=== PATIENT | female | born 1975 | race Caucasian/White ===

== ENCOUNTER 2018-06-25 10:40 | Inpatient (IN) | payer MEDICAID ==
[2018-06-25] MEDS: ONDANSETRON 4 MG INJ IV (12:48)
[2018-06-25] MEDS: KETOROLAC 30 MG INJ IV (12:48)
[2018-06-25 12:53] LABS: ADD MAN DIFF? NO
[2018-06-25 12:54] LABS: BASOPHILS % 0.5 % (0.0-2.0); EOSINOPHILS # 0.1 10^3/ul (0.0-0.5); EOSINOPHILS % 1.1 % (0.0-7.0); HEMATOCRIT 40.6 % (37.0-47.0); HEMOGLOBIN 13.2 g/dl (12.0-16.0); LYMPHOCYTES # 1.5 10^3/ul (0.8-2.9); LYMPHOCYTES % 23.2 % (15.0-51.0); MEAN CORPUSCULAR HEMOGLOBIN 27.6 pg (29.0-33.0); MEAN CORPUSCULAR HGB CONC 32.5 g/dl (32.0-37.0); MEAN CORPUSCULAR VOLUME 84.9 fl (82.0-101.0); MEAN PLATELET VOLUME 10.3 fl (7.4-10.4); MONOCYTE # 0.4 10^3/ul (0.3-0.9); MONOCYTES % 6.1 % (0.0-11.0); NEUTROPHIL # 4.5 10^3/ul (1.6-7.5); NEUTROPHILS % 68.6 % (39.0-77.0); PLATELET COUNT 332 10^3/UL (140-415); RED BLOOD COUNT 4.78 10^6/ul (4.20-5.40); RED CELL DISTRIBUTION WIDTH 13.5 % (11.5-14.5)
[2018-06-25 12:54] LABS: WHITE BLOOD COUNT 6.6 10^3/ul (4.8-10.8)
[2018-06-25 13:02] LABS: ADD UMIC YES; UR ASCORBIC ACID NEGATIVE (NEGATIVE); UR BACTERIA FEW /HPF (NONE SEEN); UR BILIRUBIN (Dip) 1+ mg/dL (NEGATIVE); UR BLOOD (Dip) NEGATIVE (NEGATIVE); UR CLARITY CLOUDY (CLEAR); UR COLOR AMBER (YELLOW); UR GLUCOSE (Dip) NEGATIVE (NEGATIVE); UR KETONES (Dip) NEGATIVE (NEGATIVE); UR LEUKOCYTE ESTERASE (Dip) NEGATIVE Leu/ul (NEGATIVE); UR MUCUS FEW /HPF (NONE SEEN); UR NITRITE (Dip) NEGATIVE (NEGATIVE); UR RBC 0 /HPF (0-5); UR SQUAMOUS EPITHELIAL CELL MODERATE /HPF (FEW); UR TOTAL PROTEIN (Dip) NEGATIVE (NEGATIVE); UR UROBILINOGEN (Dip) 2+ mg/dL (NEGATIVE); UR WBC 2 /HPF (0-5)
[2018-06-25 13:28] LABS: ALBUMIN 4.3 g/dl (3.3-4.9); ALBUMIN/GLOBULIN RATIO 1.43; ALKALINE PHOSPHATASE 157 IU/L (42-121); ANION GAP 7 (5-13); BILIRUBIN,INDIRECT 0.7 mg/dl (0-1.1); BILIRUBIN,TOTAL 0.8 mg/dl (0.2-1.3); BLOOD UREA NITROGEN 7 mg/dl (7-20); CALCIUM 9.8 mg/dl (8.4-10.2); CARBON DIOXIDE 29 mmol/L (21-31); CHLORIDE 105 mmol/L (97-110); CREATININE 0.68 mg/dl (0.44-1.00); Estimated GFR > 60 mL/min (>60); GLUCOSE 110 mg/dl (70-220); LIPASE 232 U/L (23-300); POTASSIUM 4.5 mmol/L (3.5-5.1); SODIUM 141 mmol/L (135-144); TOTAL PROTEIN 7.3 g/dl (6.1-8.1)
[2018-06-25 13:36] LABS: ALANINE AMINOTRANSFERASE 1035 IU/L (13-69); ASPARTATE AMINO TRANSFERASE 1334 IU/L (15-46)
[2018-06-25] MEDS ORDERED: ACETAMINOPHEN 325 MG TAB PO (15:30)
[2018-06-25] MEDS ORDERED: ONDANSETRON 4 MG INJ IV (15:30)
[2018-06-25] MEDS ORDERED: NACL 0.9% 3 ML SYG IV (16:00)
[2018-06-25] MEDS ORDERED: morphine 2 MG INJ IV (16:00)
[2018-06-25 16:11] LABS: INR 0.89; PROTIME 12.2 Sec (11.9-14.9)
[2018-06-25 16:12] LABS: PARTIAL THROMBOPLASTIN TIME 24.9 Sec (23.0-35.0)
[2018-06-25] MEDS: SOD CHLORIDE 0.9% 100 ML (16:55)
[2018-06-25] MEDS: IOHEXOL 300MG/ML 150 ML BTL (16:55)
[2018-06-25 18:54] LABS: HAAIG REFLEX REFLEX FILED
[2018-06-25 19:18] LABS: INR 0.88; PT RATIO 0.9
[2018-06-25 19:45] LABS: HEPATITIS B SURFACE ANTIGEN NEGATIVE (NEGATIVE)
[2018-06-25 20:01] LABS: HEPATITIS B CORE ANTIBODY NEGATIVE (NEGATIVE); HEPATITIS C VIRAL ANTIBODY NEGATIVE (NEGATIVE)
[2018-06-25 20:02] LABS: ALPHA FETOPROTEIN 4.34 IU/L (0.00-7.21)
[2018-06-25] MEDS: FAMOTIDINE 20 MG INJ IV (21:13)
[2018-06-25] MEDS: HYDROmorphONE 0.5 MG/0.5 ML SYG IV (21:13)
[2018-06-25] MEDS: DEXTROSE 5%-0.45% NACL 1,000 ML IV (21:15)
[2018-06-26 07:22] LABS: ADD MAN DIFF? NO
[2018-06-26 07:24] LABS: WHITE BLOOD COUNT 7.2 10^3/ul (4.8-10.8)
[2018-06-26 07:24] LABS: BASOPHIL # 0.1 10^3/ul (0.0-0.1); EOSINOPHILS # 0.2 10^3/ul (0.0-0.5); EOSINOPHILS % 2.4 % (0.0-7.0); HEMATOCRIT 37.9 % (37.0-47.0); HEMOGLOBIN 12.4 g/dl (12.0-16.0); LYMPHOCYTES # 1.6 10^3/ul (0.8-2.9); LYMPHOCYTES % 21.6 % (15.0-51.0); MEAN CORPUSCULAR HEMOGLOBIN 27.9 pg (29.0-33.0); MEAN CORPUSCULAR HGB CONC 32.7 g/dl (32.0-37.0); MEAN CORPUSCULAR VOLUME 85.4 fl (82.0-101.0); MEAN PLATELET VOLUME 10.4 fl (7.4-10.4); MONOCYTE # 0.4 10^3/ul (0.3-0.9); MONOCYTES % 5.6 % (0.0-11.0); PLATELET COUNT 295 10^3/UL (140-415); RED BLOOD COUNT 4.44 10^6/ul (4.20-5.40); RED CELL DISTRIBUTION WIDTH 13.7 % (11.5-14.5)
[2018-06-26 07:52] LABS: ALANINE AMINOTRANSFERASE 871 IU/L (13-69); ALBUMIN 3.9 g/dl (3.3-4.9); ALBUMIN/GLOBULIN RATIO 1.34; ALKALINE PHOSPHATASE 160 IU/L (42-121); ANION GAP 6 (5-13); BILIRUBIN,INDIRECT 1.1 mg/dl (0-1.1); BILIRUBIN,TOTAL 1.5 mg/dl (0.2-1.3); BLOOD UREA NITROGEN 6 mg/dl (7-20); CALCIUM 9.3 mg/dl (8.4-10.2); CARBON DIOXIDE 28 mmol/L (21-31); CHLORIDE 107 mmol/L (97-110); CHOL/HDL RATIO 2.3 RATIO; CHOLESTEROL 146 mg/dl (100-200); Estimated GFR > 60 mL/min (>60); GLUCOSE 119 mg/dl (70-220); HDL CHOLESTEROL 62 mg/dl (34-88); LDL CHOLESTEROL,CALCULATED 58 mg/dl; MAGNESIUM 2.3 mg/dl (1.7-2.5); POTASSIUM 3.9 mmol/L (3.5-5.1); SODIUM 141 mmol/L (135-144); TOTAL PROTEIN 6.8 g/dl (6.1-8.1); TRIGLYCERIDES 130 mg/dl (0-149)
[2018-06-26 08:00] LABS: ASPARTATE AMINO TRANSFERASE 840 IU/L (15-46)
[2018-06-26] MEDS: FAMOTIDINE 20 MG INJ IV ×2 (08:12→20:13)
[2018-06-26] MEDS: HYDROmorphONE 0.5 MG/0.5 ML SYG IV (08:12)
[2018-06-26] MEDS: DEXTROSE 5%-0.45% NACL 1,000 ML IV ×2 (09:49→22:52)
[2018-06-26] MEDS: KETOROLAC 15 MG INJ IV (20:22)
[2018-06-27 04:54] LABS: ADD MAN DIFF? NO
[2018-06-27 05:01] LABS: BASOPHIL # 0.1 10^3/ul (0.0-0.1); BASOPHILS % 0.8 % (0.0-2.0); EOSINOPHILS # 0.2 10^3/ul (0.0-0.5); EOSINOPHILS % 2.4 % (0.0-7.0); HEMATOCRIT 38.2 % (37.0-47.0); HEMOGLOBIN 12.3 g/dl (12.0-16.0); LYMPHOCYTES # 1.7 10^3/ul (0.8-2.9); LYMPHOCYTES % 23.7 % (15.0-51.0); MEAN CORPUSCULAR HEMOGLOBIN 27.9 pg (29.0-33.0); MEAN CORPUSCULAR HGB CONC 32.2 g/dl (32.0-37.0); MEAN CORPUSCULAR VOLUME 86.6 fl (82.0-101.0); MEAN PLATELET VOLUME 10.7 fl (7.4-10.4); MONOCYTE # 0.5 10^3/ul (0.3-0.9); MONOCYTES % 7.2 % (0.0-11.0); NEUTROPHIL # 4.7 10^3/ul (1.6-7.5); NEUTROPHILS % 65.5 % (39.0-77.0); PLATELET COUNT 307 10^3/UL (140-415); RED BLOOD COUNT 4.41 10^6/ul (4.20-5.40); RED CELL DISTRIBUTION WIDTH 13.4 % (11.5-14.5)
[2018-06-27 05:01] LABS: WHITE BLOOD COUNT 7.1 10^3/ul (4.8-10.8)
[2018-06-27 05:27] LABS: ALANINE AMINOTRANSFERASE 741 IU/L (13-69); ALBUMIN 3.7 g/dl (3.3-4.9); ALBUMIN/GLOBULIN RATIO 1.08; ALKALINE PHOSPHATASE 185 IU/L (42-121); ANION GAP 6 (5-13); ASPARTATE AMINO TRANSFERASE 599 IU/L (15-46); BILIRUBIN,TOTAL 1.7 mg/dl (0.2-1.3); BLOOD UREA NITROGEN 3 mg/dl (7-20); CALCIUM 9.1 mg/dl (8.4-10.2); CARBON DIOXIDE 27 mmol/L (21-31); CHLORIDE 108 mmol/L (97-110); CREATININE 0.71 mg/dl (0.44-1.00); Estimated GFR > 60 mL/min (>60); GLUCOSE 121 mg/dl (70-220); MAGNESIUM 2.1 mg/dl (1.7-2.5); POTASSIUM 4.5 mmol/L (3.5-5.1); SODIUM 141 mmol/L (135-144); TOTAL PROTEIN 7.1 g/dl (6.1-8.1)
[2018-06-27] MEDS: KETOROLAC 15 MG INJ IV ×2 (06:02→12:15)
[2018-06-27] MEDS: DEXTROSE 5%-0.45% NACL 1,000 ML IV ×2 (07:48→12:15)
[2018-06-27] MEDS: FAMOTIDINE 20 MG INJ IV ×2 (08:46→20:12)
[2018-06-27 12:57] LABS: MITOCHONDRIAL TB NEGATIVE (NEGATIVE); SMOOTH MUSCLE AB SCREEN NEGATIVE (NEGATIVE)
[2018-06-27 14:26] LABS: ANA SCREEN NEGATIVE (NEGATIVE)
[2018-06-28] MEDS: DEXTROSE 5%-0.45% NACL 1,000 ML IV ×2 (03:53→16:20)
[2018-06-28 06:01] LABS: ADD MAN DIFF? NO
[2018-06-28 06:07] LABS: BASOPHIL # 0.1 10^3/ul (0.0-0.1); EOSINOPHILS # 0.1 10^3/ul (0.0-0.5); EOSINOPHILS % 1.6 % (0.0-7.0); HEMATOCRIT 39.2 % (37.0-47.0); HEMOGLOBIN 12.7 g/dl (12.0-16.0); LYMPHOCYTES # 1.8 10^3/ul (0.8-2.9); LYMPHOCYTES % 22.3 % (15.0-51.0); MEAN CORPUSCULAR HEMOGLOBIN 27.9 pg (29.0-33.0); MEAN CORPUSCULAR HGB CONC 32.4 g/dl (32.0-37.0); MEAN PLATELET VOLUME 10.5 fl (7.4-10.4); MONOCYTE # 0.6 10^3/ul (0.3-0.9); MONOCYTES % 7.8 % (0.0-11.0); NEUTROPHIL # 5.3 10^3/ul (1.6-7.5); PLATELET COUNT 311 10^3/UL (140-415); RED BLOOD COUNT 4.56 10^6/ul (4.20-5.40); RED CELL DISTRIBUTION WIDTH 13.7 % (11.5-14.5)
[2018-06-28 06:07] LABS: WHITE BLOOD COUNT 7.9 10^3/ul (4.8-10.8)
[2018-06-28 06:35] LABS: ALANINE AMINOTRANSFERASE 553 IU/L (13-69); ALBUMIN 3.7 g/dl (3.3-4.9); ALBUMIN/GLOBULIN RATIO 1.15; ALKALINE PHOSPHATASE 171 IU/L (42-121); ANION GAP 7 (5-13); ASPARTATE AMINO TRANSFERASE 320 IU/L (15-46); BILIRUBIN,INDIRECT 0.9 mg/dl (0-1.1); BILIRUBIN,TOTAL 1.8 mg/dl (0.2-1.3); BLOOD UREA NITROGEN 2 mg/dl (7-20); CARBON DIOXIDE 27 mmol/L (21-31); CHLORIDE 108 mmol/L (97-110); CREATININE 0.69 mg/dl (0.44-1.00); Estimated GFR > 60 mL/min (>60); GLUCOSE 121 mg/dl (70-220); POTASSIUM 4.5 mmol/L (3.5-5.1); SODIUM 142 mmol/L (135-144); TOTAL PROTEIN 6.9 g/dl (6.1-8.1)
[2018-06-28] MEDS: KETOROLAC 15 MG INJ IV ×2 (07:44→14:08)
[2018-06-28] MEDS: ONDANSETRON 4 MG INJ IV ×3 (07:49→20:45)
[2018-06-28] MEDS: FAMOTIDINE 20 MG INJ IV ×2 (07:49→20:45)
[2018-06-28] MEDS: HYDROmorphONE 0.5 MG/0.5 ML SYG IV ×2 (16:26→20:45)
[2018-06-29] MEDS: HYDROmorphONE 0.5 MG/0.5 ML SYG IV ×2 (01:32→02:35)
[2018-06-29] MEDS: ONDANSETRON 4 MG INJ IV ×4 (02:34→20:13)
[2018-06-29] MEDS: DEXTROSE 5%-0.45% NACL 1,000 ML IV ×2 (04:21→18:07)
[2018-06-29 06:11] LABS: ADD MAN DIFF? NO
[2018-06-29 06:12] LABS: BASOPHILS % 0.2 % (0.0-2.0); EOSINOPHILS % 0.1 % (0.0-7.0); HEMATOCRIT 39.6 % (37.0-47.0); HEMOGLOBIN 12.9 g/dl (12.0-16.0); LYMPHOCYTES # 1.1 10^3/ul (0.8-2.9); LYMPHOCYTES % 7.9 % (15.0-51.0); MEAN CORPUSCULAR HGB CONC 32.6 g/dl (32.0-37.0); MEAN CORPUSCULAR VOLUME 85.9 fl (82.0-101.0); MONOCYTE # 0.6 10^3/ul (0.3-0.9); MONOCYTES % 4.1 % (0.0-11.0); NEUTROPHIL # 12.4 10^3/ul (1.6-7.5); NEUTROPHILS % 87.3 % (39.0-77.0); PLATELET COUNT 300 10^3/UL (140-415); RED BLOOD COUNT 4.61 10^6/ul (4.20-5.40); RED CELL DISTRIBUTION WIDTH 13.9 % (11.5-14.5)
[2018-06-29 06:12] LABS: WHITE BLOOD COUNT 14.2 10^3/ul (4.8-10.8)
[2018-06-29 06:46] LABS: ALANINE AMINOTRANSFERASE 462 IU/L (13-69); ALBUMIN 3.9 g/dl (3.3-4.9); ALKALINE PHOSPHATASE 178 IU/L (42-121); ANION GAP 7 (5-13); ASPARTATE AMINO TRANSFERASE 258 IU/L (15-46); BILIRUBIN,INDIRECT 0.9 mg/dl (0-1.1); BILIRUBIN,TOTAL 2.2 mg/dl (0.2-1.3); BLOOD UREA NITROGEN 5 mg/dl (7-20); CALCIUM 9.1 mg/dl (8.4-10.2); CARBON DIOXIDE 26 mmol/L (21-31); CHLORIDE 104 mmol/L (97-110); CREATININE 0.67 mg/dl (0.44-1.00); Estimated GFR > 60 mL/min (>60); GLUCOSE 154 mg/dl (70-220); MAGNESIUM 1.9 mg/dl (1.7-2.5); POTASSIUM 3.4 mmol/L (3.5-5.1); SODIUM 137 mmol/L (135-144); TOTAL PROTEIN 6.9 g/dl (6.1-8.1)
[2018-06-29] MEDS: FAMOTIDINE 20 MG INJ IV ×2 (08:31→20:12)
[2018-06-29] MEDS: HYDROmorphONE 1 MG/ML SYG IV ×3 (08:31→20:13)
[2018-06-29] MEDS: POTASSIUM CHLORIDE 100 ML IVPB ×2 (10:26→14:24)
[2018-06-29] MEDS: KETOROLAC 15 MG INJ IV (10:32)
[2018-06-29] MEDS ORDERED: DOCUSATE SODIUM 100 MG CAP PO (11:00)
[2018-06-30] MEDS: HYDROmorphONE 1 MG/ML SYG IV ×4 (02:16→21:26)
[2018-06-30] MEDS: ONDANSETRON 4 MG INJ IV ×2 (02:16→06:59)
[2018-06-30 05:36] LABS: ADD MAN DIFF? NO
[2018-06-30 05:48] LABS: WHITE BLOOD COUNT 15.9 10^3/ul (4.8-10.8)
[2018-06-30 05:48] LABS: BASOPHILS % 0.2 % (0.0-2.0); EOSINOPHILS # 0.1 10^3/ul (0.0-0.5); EOSINOPHILS % 0.3 % (0.0-7.0); HEMATOCRIT 37.7 % (37.0-47.0); HEMOGLOBIN 12.2 g/dl (12.0-16.0); LYMPHOCYTES # 1.5 10^3/ul (0.8-2.9); LYMPHOCYTES % 9.6 % (15.0-51.0); MEAN CORPUSCULAR HEMOGLOBIN 27.9 pg (29.0-33.0); MEAN CORPUSCULAR HGB CONC 32.4 g/dl (32.0-37.0); MEAN CORPUSCULAR VOLUME 86.3 fl (82.0-101.0); MEAN PLATELET VOLUME 11.3 fl (7.4-10.4); MONOCYTE # 0.9 10^3/ul (0.3-0.9); MONOCYTES % 5.6 % (0.0-11.0); NEUTROPHIL # 13.3 10^3/ul (1.6-7.5); NEUTROPHILS % 83.9 % (39.0-77.0); PLATELET COUNT 265 10^3/UL (140-415); RED BLOOD COUNT 4.37 10^6/ul (4.20-5.40); RED CELL DISTRIBUTION WIDTH 14.2 % (11.5-14.5)
[2018-06-30 06:03] LABS: ALANINE AMINOTRANSFERASE 339 IU/L (13-69); ALBUMIN 3.7 g/dl (3.3-4.9); ALBUMIN/GLOBULIN RATIO 1.15; ALKALINE PHOSPHATASE 181 IU/L (42-121); ANION GAP 8 (5-13); ASPARTATE AMINO TRANSFERASE 146 IU/L (15-46); BLOOD UREA NITROGEN 5 mg/dl (7-20); CALCIUM 8.9 mg/dl (8.4-10.2); CARBON DIOXIDE 27 mmol/L (21-31); CHLORIDE 103 mmol/L (97-110); Estimated GFR > 60 mL/min (>60); GLUCOSE 111 mg/dl (70-220); MAGNESIUM 1.9 mg/dl (1.7-2.5); POTASSIUM 3.7 mmol/L (3.5-5.1); SODIUM 138 mmol/L (135-144); TOTAL PROTEIN 6.9 g/dl (6.1-8.1)
[2018-06-30] MEDS: POLYETHYLENE GLYCOL 17 GM PACKET PO (07:00)
[2018-06-30] MEDS: FAMOTIDINE 20 MG INJ IV (08:34)
[2018-06-30] MEDS: DEXTROSE 5%-0.45% NACL 1,000 ML IV ×2 (09:27→23:17)
[2018-06-30] MEDS: PIPER-TAZO 3.375 GM IV (PMX) 100 ML IVPB ×2 (10:56→21:28)
[2018-06-30] MEDS: PANTOPRAZOLE (EC) 40 MG TAB PO (17:13)
[2018-06-30] MEDS: SUCRALFATE (100 MG/ML) 10ML CUP PO ×2 (17:13→23:16)
[2018-07-01] MEDS: PANTOPRAZOLE (EC) 40 MG TAB PO ×2 (05:37→18:00)
[2018-07-01] MEDS: PIPER-TAZO 3.375 GM IV (PMX) 100 ML IVPB ×3 (05:37→18:44)
[2018-07-01] MEDS: SUCRALFATE (100 MG/ML) 10ML CUP PO ×4 (05:37→21:12)
[2018-07-01 07:19] LABS: ADD MAN DIFF? NO
[2018-07-01 07:20] LABS: WHITE BLOOD COUNT 16.8 10^3/ul (4.8-10.8)
[2018-07-01 07:20] LABS: BASOPHILS % 0.2 % (0.0-2.0); EOSINOPHILS # 0.1 10^3/ul (0.0-0.5); EOSINOPHILS % 0.4 % (0.0-7.0); HEMATOCRIT 36.1 % (37.0-47.0); HEMOGLOBIN 11.6 g/dl (12.0-16.0); LYMPHOCYTES # 1.7 10^3/ul (0.8-2.9); LYMPHOCYTES % 10.3 % (15.0-51.0); MEAN CORPUSCULAR HEMOGLOBIN 27.8 pg (29.0-33.0); MEAN CORPUSCULAR HGB CONC 32.1 g/dl (32.0-37.0); MEAN CORPUSCULAR VOLUME 86.4 fl (82.0-101.0); MEAN PLATELET VOLUME 11.1 fl (7.4-10.4); MONOCYTE # 1.3 10^3/ul (0.3-0.9); MONOCYTES % 7.6 % (0.0-11.0); NEUTROPHIL # 13.6 10^3/ul (1.6-7.5); PLATELET COUNT 251 10^3/UL (140-415); RED BLOOD COUNT 4.18 10^6/ul (4.20-5.40); RED CELL DISTRIBUTION WIDTH 14.2 % (11.5-14.5)
[2018-07-01 07:56] LABS: ALANINE AMINOTRANSFERASE 217 IU/L (13-69); ALBUMIN 3.5 g/dl (3.3-4.9); ALBUMIN/GLOBULIN RATIO 1.02; ALKALINE PHOSPHATASE 151 IU/L (42-121); ANION GAP 7 (5-13); ASPARTATE AMINO TRANSFERASE 66 IU/L (15-46); BILIRUBIN,INDIRECT 0.9 mg/dl (0-1.1); BILIRUBIN,TOTAL 0.9 mg/dl (0.2-1.3); BLOOD UREA NITROGEN 4 mg/dl (7-20); CALCIUM 8.5 mg/dl (8.4-10.2); CARBON DIOXIDE 28 mmol/L (21-31); CHLORIDE 103 mmol/L (97-110); CREATININE 0.63 mg/dl (0.44-1.00); Estimated GFR > 60 mL/min (>60); GLUCOSE 106 mg/dl (70-220); POTASSIUM 3.3 mmol/L (3.5-5.1); SODIUM 138 mmol/L (135-144); TOTAL PROTEIN 6.9 g/dl (6.1-8.1)
[2018-07-01] MEDS: HYDROmorphONE 1 MG/ML SYG IV ×3 (08:46→23:43)
[2018-07-01] MEDS: SOD CHLORIDE 0.45% 1,000 ML IV (16:11)
[2018-07-01] MEDS ORDERED: VANCOMYCIN IV PER PHARMACY XX (16:30)
[2018-07-01] MEDS ORDERED: VANCOMYCIN 1 GM 250 ML IVPB (17:00)
[2018-07-01] MEDS: POTASSIUM CHLORIDE 20 MEQ POWDER FOR ORAL SOLN PO (21:12)
[2018-07-01] MEDS: VANCOMYCIN HCL 1.5 GM in SOD CHLORIDE 0.9% 250 ML IVPB (21:13)
[2018-07-02] MEDS: PIPER-TAZO 3.375 GM IV (PMX) 100 ML IVPB ×5 (00:28→23:47)
[2018-07-02] MEDS: HYDROmorphONE 1 MG/ML SYG IV ×5 (05:00→23:48)
[2018-07-02] MEDS: PANTOPRAZOLE (EC) 40 MG TAB PO ×2 (05:33→18:00)
[2018-07-02 07:30] LABS: ADD MAN DIFF? NO
[2018-07-02 07:34] LABS: BASOPHIL # 0.1 10^3/ul (0.0-0.1); BASOPHILS % 0.5 % (0.0-2.0); EOSINOPHILS # 0.2 10^3/ul (0.0-0.5); EOSINOPHILS % 1.1 % (0.0-7.0); HEMATOCRIT 34.6 % (37.0-47.0); HEMOGLOBIN 11.2 g/dl (12.0-16.0); LYMPHOCYTES # 1.7 10^3/ul (0.8-2.9); MEAN CORPUSCULAR HGB CONC 32.4 g/dl (32.0-37.0); MEAN CORPUSCULAR VOLUME 86.5 fl (82.0-101.0); MEAN PLATELET VOLUME 11.1 fl (7.4-10.4); MONOCYTE # 1.2 10^3/ul (0.3-0.9); NEUTROPHIL # 11.9 10^3/ul (1.6-7.5); NEUTROPHILS % 78.7 % (39.0-77.0); PLATELET COUNT 245 10^3/UL (140-415)
[2018-07-02 07:34] LABS: WHITE BLOOD COUNT 15.1 10^3/ul (4.8-10.8)
[2018-07-02 08:03] LABS: ALANINE AMINOTRANSFERASE 149 IU/L (13-69); ALBUMIN 3.4 g/dl (3.3-4.9); ALKALINE PHOSPHATASE 133 IU/L (42-121); ANION GAP 7 (5-13); ASPARTATE AMINO TRANSFERASE 33 IU/L (15-46); BILIRUBIN,INDIRECT 0.8 mg/dl (0-1.1); BILIRUBIN,TOTAL 0.8 mg/dl (0.2-1.3); BLOOD UREA NITROGEN 6 mg/dl (7-20); CALCIUM 8.7 mg/dl (8.4-10.2); CARBON DIOXIDE 28 mmol/L (21-31); CHLORIDE 104 mmol/L (97-110); CREATININE 0.66 mg/dl (0.44-1.00); Estimated GFR > 60 mL/min (>60); GLUCOSE 101 mg/dl (70-220); MAGNESIUM 2.2 mg/dl (1.7-2.5); POTASSIUM 4.2 mmol/L (3.5-5.1); SODIUM 139 mmol/L (135-144); TOTAL PROTEIN 6.8 g/dl (6.1-8.1)
[2018-07-02] MEDS: SUCRALFATE (100 MG/ML) 10ML CUP PO ×4 (09:00→21:00)
[2018-07-02] MEDS: VANCOMYCIN 750 MG (PMX) 250 ML IVPB ×2 (09:37→21:46)
[2018-07-02] MEDS: SOD CHLORIDE 0.45% 1,000 ML IV (12:00)
[2018-07-02] MEDS ORDERED: LIDOCAINE 1% (MPF) 30 ML INJ (18:29)
[2018-07-02] MEDS ORDERED: BUPIVACAINE 0.25%/EPI (SDV) 30 ML INJ (18:29)
[2018-07-02] MEDS ORDERED: CEFAZOLIN 1 GM INJ (18:42)
[2018-07-02] MEDS ORDERED: ROCURONIUM 50 MG INJ (18:42)
[2018-07-02] MEDS ORDERED: PROPOFOL 20 ML (18:42)
[2018-07-02] MEDS ORDERED: ROPIVACAINE 0.2% 20 ML VIAL (18:42)
[2018-07-02] MEDS ORDERED: MIDAZOLAM 1 MG/ML 2 ML INJ (18:42)
[2018-07-02] MEDS ORDERED: FENTAnyl 50 MCG/ML VIAL (18:42)
[2018-07-02] MEDS ORDERED: METOCLOPRAMIDE 10 MG INJ (19:20)
[2018-07-02] MEDS ORDERED: DEXAMETHASONE 4 MG/ML 5 ML INJ (19:20)
[2018-07-02] MEDS ORDERED: ONDANSETRON 4 MG INJ (19:20)
[2018-07-02] MEDS ORDERED: KETOROLAC 30 MG INJ (19:20)
[2018-07-02] MEDS ORDERED: SUGAMMADEX SODIUM 200 MG/2 ML VIAL IV (19:25)
[2018-07-02] MEDS ORDERED: HYDROmorphONE 1 MG/5 ML IV SYRINGE IV ×3 (19:30→20:44)
[2018-07-02] MEDS ORDERED: hydrALAzine 20 MG INJ IV (19:30)
[2018-07-02] MEDS ORDERED: METOCLOPRAMIDE 10 MG INJ IV (19:30)
[2018-07-02] MEDS ORDERED: EPHEDrine 25 MG/5 ML SYG IV (19:30)
[2018-07-02] MEDS ORDERED: LABETALOL HCL 20MG INJ IV (19:30)
[2018-07-02] MEDS ORDERED: OXYCODONE/ACETAMINOPHEN (5/325) TAB PO (19:30)
[2018-07-02] MEDS ORDERED: FENTAnyl 50 MCG/ML VIAL IV ×3 (19:30)
[2018-07-02] MEDS ORDERED: MEPERIDINE 25 MG INJ IV (19:30)
[2018-07-02] MEDS ORDERED: ONDANSETRON 4 MG INJ IV (19:30)
[2018-07-02] MEDS ORDERED: DIPHENHYDRAMINE 50 MG INJ IV (19:30)
[2018-07-02] MEDS: IOHEXOL 300MG/ML 30 ML BTL (19:38)
[2018-07-02] MEDS: HYDROmorphONE 1 MG/5 ML IV SYRINGE IV (20:58)
[2018-07-03] MEDS: SOD CHLORIDE 0.45% 1,000 ML IV (03:04)
[2018-07-03] MEDS: PANTOPRAZOLE (EC) 40 MG TAB PO ×2 (05:45→17:26)
[2018-07-03] MEDS: PIPER-TAZO 3.375 GM IV (PMX) 100 ML IVPB ×3 (05:45→17:26)
[2018-07-03] MEDS: ACETAMINOPHEN 325 MG TAB PO (05:55)
[2018-07-03 06:08] LABS: ADD MAN DIFF? NO
[2018-07-03 06:09] LABS: BASOPHILS % 0.2 % (0.0-2.0); HEMATOCRIT 35.4 % (37.0-47.0); HEMOGLOBIN 11.6 g/dl (12.0-16.0); LYMPHOCYTES # 0.9 10^3/ul (0.8-2.9); LYMPHOCYTES % 6.6 % (15.0-51.0); MEAN CORPUSCULAR HEMOGLOBIN 27.9 pg (29.0-33.0); MEAN CORPUSCULAR HGB CONC 32.8 g/dl (32.0-37.0); MEAN CORPUSCULAR VOLUME 85.1 fl (82.0-101.0); MEAN PLATELET VOLUME 10.3 fl (7.4-10.4); MONOCYTE # 0.1 10^3/ul (0.3-0.9); NEUTROPHILS % 91.8 % (39.0-77.0); PLATELET COUNT 330 10^3/UL (140-415); RED BLOOD COUNT 4.16 10^6/ul (4.20-5.40); RED CELL DISTRIBUTION WIDTH 13.6 % (11.5-14.5)
[2018-07-03 06:09] LABS: WHITE BLOOD COUNT 13.1 10^3/ul (4.8-10.8)
[2018-07-03 06:35] LABS: ALANINE AMINOTRANSFERASE 113 IU/L (13-69); ALBUMIN 3.7 g/dl (3.3-4.9); ALBUMIN/GLOBULIN RATIO 0.97; ALKALINE PHOSPHATASE 134 IU/L (42-121); ANION GAP 8 (5-13); ASPARTATE AMINO TRANSFERASE 33 IU/L (15-46); BILIRUBIN,INDIRECT 0.5 mg/dl (0-1.1); BILIRUBIN,TOTAL 0.5 mg/dl (0.2-1.3); BLOOD UREA NITROGEN 7 mg/dl (7-20); CALCIUM 8.8 mg/dl (8.4-10.2); CARBON DIOXIDE 27 mmol/L (21-31); CHLORIDE 104 mmol/L (97-110); CREATININE 0.58 mg/dl (0.44-1.00); Estimated GFR > 60 mL/min (>60); GLUCOSE 148 mg/dl (70-220); POTASSIUM 4.3 mmol/L (3.5-5.1); SODIUM 139 mmol/L (135-144); TOTAL PROTEIN 7.5 g/dl (6.1-8.1)
[2018-07-03 06:39] LABS: ALANINE AMINOTRANSFERASE 118 IU/L (13-69); ALBUMIN 3.6 g/dl (3.3-4.9); ALKALINE PHOSPHATASE 121 IU/L (42-121); ASPARTATE AMINO TRANSFERASE 38 IU/L (15-46); BILIRUBIN,INDIRECT 0.5 mg/dl (0-1.1); BILIRUBIN,TOTAL 0.5 mg/dl (0.2-1.3); TOTAL PROTEIN 6.6 g/dl (6.1-8.1)
[2018-07-03 06:41] LABS: ANION GAP 9 (5-13); BLOOD UREA NITROGEN 7 mg/dl (7-20); CARBON DIOXIDE 26 mmol/L (21-31); CHLORIDE 103 mmol/L (97-110); CREATININE 0.62 mg/dl (0.44-1.00); Estimated GFR > 60 mL/min (>60); GLUCOSE 150 mg/dl (70-220); MAGNESIUM 2.4 mg/dl (1.7-2.5); PHOSPHORUS 4.4 mg/dl (2.5-4.9); POTASSIUM 4.3 mmol/L (3.5-5.1); SODIUM 138 mmol/L (135-144)
[2018-07-03] MEDS ORDERED: ONDANSETRON 4 MG INJ IV ×2 (08:30→09:00)
[2018-07-03] MEDS ORDERED: DIPHENHYDRAMINE 50 MG INJ IV ×2 (08:30→09:00)
[2018-07-03] MEDS ORDERED: KETOROLAC 30 MG INJ IV ×2 (08:30→09:00)
[2018-07-03] MEDS ORDERED: morphine 2 MG INJ IV ×6 (08:30→09:00)
[2018-07-03] MEDS ORDERED: NALOXONE (0.4 MG/ML) INJ IV (09:00)
[2018-07-03 09:09] LABS: VANCOMYCIN,TROUGH < 5.0 ug/ml (10.0-20.0)
[2018-07-03] MEDS: HYDROmorphONE 1 MG/ML SYG IV (09:22)
[2018-07-03] MEDS: SUCRALFATE (100 MG/ML) 10ML CUP PO (09:22)
[2018-07-03] MEDS: VANCOMYCIN 750 MG (PMX) 250 ML IVPB (09:28)
[2018-07-03] MEDS ORDERED: VANCOMYCIN 750 MG (PMX) 250 ML IVPB ×2 (16:00→17:00)
[2018-07-03] MEDS: HYDROCODONE/APAP (5/325) TAB PO ×2 (17:26→22:07)
[2018-07-04] MEDS: PIPER-TAZO 3.375 GM IV (PMX) 100 ML IVPB ×5 (00:19→23:19)
[2018-07-04] MEDS: PANTOPRAZOLE (EC) 40 MG TAB PO ×2 (05:58→17:40)
[2018-07-04 07:12] LABS: ADD MAN DIFF? NO
[2018-07-04 07:17] LABS: BASOPHIL # 0.1 10^3/ul (0.0-0.1); BASOPHILS % 0.4 % (0.0-2.0); EOSINOPHILS # 0.1 10^3/ul (0.0-0.5); EOSINOPHILS % 1.1 % (0.0-7.0); HEMATOCRIT 32.8 % (37.0-47.0); HEMOGLOBIN 10.6 g/dl (12.0-16.0); LYMPHOCYTES % 22.4 % (15.0-51.0); MEAN CORPUSCULAR HEMOGLOBIN 27.9 pg (29.0-33.0); MEAN CORPUSCULAR HGB CONC 32.3 g/dl (32.0-37.0); MEAN CORPUSCULAR VOLUME 86.3 fl (82.0-101.0); MEAN PLATELET VOLUME 10.5 fl (7.4-10.4); MONOCYTE # 0.7 10^3/ul (0.3-0.9); MONOCYTES % 5.3 % (0.0-11.0); NEUTROPHIL # 9.3 10^3/ul (1.6-7.5); NEUTROPHILS % 70.3 % (39.0-77.0); PLATELET COUNT 319 10^3/UL (140-415); RED CELL DISTRIBUTION WIDTH 13.7 % (11.5-14.5)
[2018-07-04 07:17] LABS: WHITE BLOOD COUNT 13.3 10^3/ul (4.8-10.8)
[2018-07-04 07:46] LABS: ALANINE AMINOTRANSFERASE 80 IU/L (13-69); ALBUMIN 3.5 g/dl (3.3-4.9); ALBUMIN/GLOBULIN RATIO 1.12; ALKALINE PHOSPHATASE 105 IU/L (42-121); ANION GAP 7 (5-13); ASPARTATE AMINO TRANSFERASE 28 IU/L (15-46); BILIRUBIN,INDIRECT 0.4 mg/dl (0-1.1); BILIRUBIN,TOTAL 0.4 mg/dl (0.2-1.3); BLOOD UREA NITROGEN 11 mg/dl (7-20); CALCIUM 8.7 mg/dl (8.4-10.2); CARBON DIOXIDE 26 mmol/L (21-31); CHLORIDE 108 mmol/L (97-110); CREATININE 0.75 mg/dl (0.44-1.00); Estimated GFR > 60 mL/min (>60); GLUCOSE 96 mg/dl (70-220); POTASSIUM 3.8 mmol/L (3.5-5.1); SODIUM 141 mmol/L (135-144); TOTAL PROTEIN 6.6 g/dl (6.1-8.1)
[2018-07-04 07:48] LABS: MAGNESIUM 2.3 mg/dl (1.7-2.5)
[2018-07-04] MEDS: HYDROCODONE/APAP (5/325) TAB PO ×3 (09:00→22:25)
[2018-07-05] MEDS: VANCOMYCIN HCL 1.5 GM in SOD CHLORIDE 0.9% 250 ML IVPB (02:52)
[2018-07-05 04:48] LABS: ADD UMIC NO; UR ASCORBIC ACID NEGATIVE (NEGATIVE); UR BILIRUBIN (Dip) NEGATIVE (NEGATIVE); UR BLOOD (Dip) NEGATIVE (NEGATIVE); UR CLARITY CLEAR (CLEAR); UR COLOR YELLOW (YELLOW); UR GLUCOSE (Dip) NEGATIVE (NEGATIVE); UR KETONES (Dip) NEGATIVE (NEGATIVE); UR LEUKOCYTE ESTERASE (Dip) NEGATIVE Leu/ul (NEGATIVE); UR NITRITE (Dip) NEGATIVE (NEGATIVE); UR SPECIFIC GRAVITY (Dip) 1.016 (1.003-1.030); UR TOTAL PROTEIN (Dip) NEGATIVE (NEGATIVE); UR UROBILINOGEN (Dip) NEGATIVE (NEGATIVE)
[2018-07-05 06:29] LABS: ADD MAN DIFF? NO
[2018-07-05 06:32] LABS: WHITE BLOOD COUNT 13.5 10^3/ul (4.8-10.8)
[2018-07-05 06:32] LABS: BASOPHIL # 0.1 10^3/ul (0.0-0.1); BASOPHILS % 0.4 % (0.0-2.0); EOSINOPHILS # 0.2 10^3/ul (0.0-0.5); EOSINOPHILS % 1.6 % (0.0-7.0); HEMATOCRIT 35.8 % (37.0-47.0); HEMOGLOBIN 11.6 g/dl (12.0-16.0); LYMPHOCYTES # 2.9 10^3/ul (0.8-2.9); LYMPHOCYTES % 21.5 % (15.0-51.0); MEAN CORPUSCULAR HEMOGLOBIN 27.6 pg (29.0-33.0); MEAN CORPUSCULAR HGB CONC 32.4 g/dl (32.0-37.0); MEAN CORPUSCULAR VOLUME 85.2 fl (82.0-101.0); MEAN PLATELET VOLUME 10.3 fl (7.4-10.4); MONOCYTE # 0.9 10^3/ul (0.3-0.9); MONOCYTES % 6.5 % (0.0-11.0); NEUTROPHIL # 9.4 10^3/ul (1.6-7.5); NEUTROPHILS % 69.6 % (39.0-77.0); PLATELET COUNT 355 10^3/UL (140-415); RED CELL DISTRIBUTION WIDTH 13.8 % (11.5-14.5)
[2018-07-05 06:53] LABS: ANION GAP 9 (5-13); BLOOD UREA NITROGEN 11 mg/dl (7-20); CALCIUM 8.8 mg/dl (8.4-10.2); CARBON DIOXIDE 27 mmol/L (21-31); CHLORIDE 104 mmol/L (97-110); CREATININE 0.77 mg/dl (0.44-1.00); Estimated GFR > 60 mL/min (>60); GLUCOSE 85 mg/dl (70-220); MAGNESIUM 2.2 mg/dl (1.7-2.5); PHOSPHORUS 5.1 mg/dl (2.5-4.9); POTASSIUM 3.8 mmol/L (3.5-5.1); SODIUM 140 mmol/L (135-144)
[2018-07-05] MEDS: PIPER-TAZO 3.375 GM IV (PMX) 100 ML IVPB ×4 (07:02→23:36)
[2018-07-05] MEDS: PANTOPRAZOLE (EC) 40 MG TAB PO ×2 (07:02→17:33)
[2018-07-05] MEDS: HYDROCODONE/APAP (5/325) TAB PO ×2 (12:28→19:05)
[2018-07-05] MEDS: VANCOMYCIN 1 GM 250 ML IVPB (14:26)
[2018-07-06] MEDS: VANCOMYCIN 1 GM 250 ML IVPB ×2 (02:05→13:58)
[2018-07-06] MEDS: PIPER-TAZO 3.375 GM IV (PMX) 100 ML IVPB ×3 (05:45→18:11)
[2018-07-06] MEDS: PANTOPRAZOLE (EC) 40 MG TAB PO ×2 (05:45→18:11)
[2018-07-06 06:25] LABS: ADD MAN DIFF? NO
[2018-07-06 06:34] LABS: BASOPHIL # 0.1 10^3/ul (0.0-0.1); BASOPHILS % 0.6 % (0.0-2.0); EOSINOPHILS # 0.3 10^3/ul (0.0-0.5); EOSINOPHILS % 2.2 % (0.0-7.0); HEMATOCRIT 35.1 % (37.0-47.0); HEMOGLOBIN 11.6 g/dl (12.0-16.0); LYMPHOCYTES # 2.3 10^3/ul (0.8-2.9); LYMPHOCYTES % 19.4 % (15.0-51.0); MEAN CORPUSCULAR VOLUME 84.8 fl (82.0-101.0); MONOCYTE # 0.7 10^3/ul (0.3-0.9); MONOCYTES % 5.4 % (0.0-11.0); NEUTROPHIL # 8.6 10^3/ul (1.6-7.5); PLATELET COUNT 366 10^3/UL (140-415); RED BLOOD COUNT 4.14 10^6/ul (4.20-5.40); RED CELL DISTRIBUTION WIDTH 13.3 % (11.5-14.5)
[2018-07-06 06:51] LABS: ALANINE AMINOTRANSFERASE 86 IU/L (13-69); ALBUMIN 3.6 g/dl (3.3-4.9); ALKALINE PHOSPHATASE 142 IU/L (42-121); ANION GAP 9 (5-13); ASPARTATE AMINO TRANSFERASE 56 IU/L (15-46); BILIRUBIN,INDIRECT 0.4 mg/dl (0-1.1); BILIRUBIN,TOTAL 0.4 mg/dl (0.2-1.3); BLOOD UREA NITROGEN 10 mg/dl (7-20); CARBON DIOXIDE 25 mmol/L (21-31); CHLORIDE 105 mmol/L (97-110); CREATININE 0.82 mg/dl (0.44-1.00); Estimated GFR > 60 mL/min (>60); GLUCOSE 98 mg/dl (70-220); POTASSIUM 4.4 mmol/L (3.5-5.1); SODIUM 139 mmol/L (135-144); TOTAL PROTEIN 7.2 g/dl (6.1-8.1)
[2018-07-06 07:11] LABS: PHOSPHORUS 4.7 mg/dl (2.5-4.9)
[2018-07-06 07:11] LABS: MAGNESIUM 2.4 mg/dl (1.7-2.5)
[2018-07-06] MEDS: MULTIVITAMINS/MINERALS TAB PO (09:47)
[2018-07-06] MEDS: HYDROCODONE/APAP (5/325) TAB PO ×2 (12:46→21:36)
[2018-07-06 13:23] LABS: VANCOMYCIN,TROUGH 8.3 ug/ml (10.0-20.0)
[2018-07-07] MEDS: PIPER-TAZO 3.375 GM IV (PMX) 100 ML IVPB ×4 (01:22→17:45)
[2018-07-07] MEDS: VANCOMYCIN HCL 1.25 GM in SOD CHLORIDE 0.9% 250 ML IVPB ×2 (02:40→14:27)
[2018-07-07 06:01] LABS: ADD MAN DIFF? NO
[2018-07-07 06:09] LABS: BASOPHIL # 0.1 10^3/ul (0.0-0.1); BASOPHILS % 0.5 % (0.0-2.0); EOSINOPHILS # 0.3 10^3/ul (0.0-0.5); EOSINOPHILS % 2.5 % (0.0-7.0); HEMATOCRIT 36.7 % (37.0-47.0); HEMOGLOBIN 11.7 g/dl (12.0-16.0); LYMPHOCYTES # 2.8 10^3/ul (0.8-2.9); LYMPHOCYTES % 27.8 % (15.0-51.0); MEAN CORPUSCULAR HEMOGLOBIN 27.1 pg (29.0-33.0); MEAN CORPUSCULAR HGB CONC 31.9 g/dl (32.0-37.0); MEAN PLATELET VOLUME 9.8 fl (7.4-10.4); MONOCYTE # 0.5 10^3/ul (0.3-0.9); MONOCYTES % 5.1 % (0.0-11.0); NEUTROPHIL # 6.3 10^3/ul (1.6-7.5); NEUTROPHILS % 63.7 % (39.0-77.0); PLATELET COUNT 399 10^3/UL (140-415); RED BLOOD COUNT 4.32 10^6/ul (4.20-5.40); RED CELL DISTRIBUTION WIDTH 13.1 % (11.5-14.5)
[2018-07-07 06:09] LABS: WHITE BLOOD COUNT 9.9 10^3/ul (4.8-10.8)
[2018-07-07 06:37] LABS: PHOSPHORUS 4.5 mg/dl (2.5-4.9)
[2018-07-07 06:37] LABS: MAGNESIUM 2.4 mg/dl (1.7-2.5)
[2018-07-07 06:46] LABS: ALANINE AMINOTRANSFERASE 72 IU/L (13-69); ALBUMIN 3.7 g/dl (3.3-4.9); ALBUMIN/GLOBULIN RATIO 1.05; ALKALINE PHOSPHATASE 135 IU/L (42-121); ANION GAP 8 (5-13); ASPARTATE AMINO TRANSFERASE 38 IU/L (15-46); BILIRUBIN,INDIRECT 0.4 mg/dl (0-1.1); BILIRUBIN,TOTAL 0.4 mg/dl (0.2-1.3); BLOOD UREA NITROGEN 11 mg/dl (7-20); CALCIUM 9.2 mg/dl (8.4-10.2); CARBON DIOXIDE 27 mmol/L (21-31); CHLORIDE 105 mmol/L (97-110); Estimated GFR > 60 mL/min (>60); GLUCOSE 96 mg/dl (70-220); POTASSIUM 4.3 mmol/L (3.5-5.1); SODIUM 140 mmol/L (135-144); TOTAL PROTEIN 7.2 g/dl (6.1-8.1)
[2018-07-07] MEDS: PANTOPRAZOLE (EC) 40 MG TAB PO ×2 (06:51→17:45)
[2018-07-07] MEDS: MULTIVITAMINS/MINERALS TAB PO (09:28)
[2018-07-07] MEDS: HYDROCODONE/APAP (5/325) TAB PO ×2 (12:26→20:54)
[2018-07-08] MEDS: PIPER-TAZO 3.375 GM IV (PMX) 100 ML IVPB ×4 (00:10→18:00)
[2018-07-08] MEDS: VANCOMYCIN HCL 1.25 GM in SOD CHLORIDE 0.9% 250 ML IVPB (02:40)
[2018-07-08 05:43] LABS: ADD MAN DIFF? NO
[2018-07-08] MEDS: PANTOPRAZOLE (EC) 40 MG TAB PO ×2 (05:54→18:00)
[2018-07-08 05:57] LABS: WHITE BLOOD COUNT 11.7 10^3/ul (4.8-10.8)
[2018-07-08 05:57] LABS: BASOPHIL # 0.1 10^3/ul (0.0-0.1); BASOPHILS % 0.5 % (0.0-2.0); EOSINOPHILS # 0.4 10^3/ul (0.0-0.5); EOSINOPHILS % 3.3 % (0.0-7.0); HEMATOCRIT 36.9 % (37.0-47.0); HEMOGLOBIN 11.8 g/dl (12.0-16.0); LYMPHOCYTES % 25.9 % (15.0-51.0); MEAN CORPUSCULAR HEMOGLOBIN 27.1 pg (29.0-33.0); MEAN CORPUSCULAR VOLUME 84.8 fl (82.0-101.0); MONOCYTE # 0.7 10^3/ul (0.3-0.9); MONOCYTES % 5.8 % (0.0-11.0); NEUTROPHIL # 7.4 10^3/ul (1.6-7.5); NEUTROPHILS % 63.8 % (39.0-77.0); PLATELET COUNT 428 10^3/UL (140-415); RED BLOOD COUNT 4.35 10^6/ul (4.20-5.40); RED CELL DISTRIBUTION WIDTH 13.2 % (11.5-14.5)
[2018-07-08 06:18] LABS: MAGNESIUM 2.4 mg/dl (1.7-2.5)
[2018-07-08 06:18] LABS: PHOSPHORUS 4.4 mg/dl (2.5-4.9)
[2018-07-08 06:23] LABS: ALANINE AMINOTRANSFERASE 59 IU/L (13-69); ALBUMIN 3.9 g/dl (3.3-4.9); ALBUMIN/GLOBULIN RATIO 1.21; ALKALINE PHOSPHATASE 128 IU/L (42-121); ANION GAP 8 (5-13); ASPARTATE AMINO TRANSFERASE 34 IU/L (15-46); BILIRUBIN,INDIRECT 0.4 mg/dl (0-1.1); BILIRUBIN,TOTAL 0.4 mg/dl (0.2-1.3); BLOOD UREA NITROGEN 13 mg/dl (7-20); CALCIUM 9.1 mg/dl (8.4-10.2); CARBON DIOXIDE 25 mmol/L (21-31); CHLORIDE 105 mmol/L (97-110); CREATININE 0.95 mg/dl (0.44-1.00); Estimated GFR > 60 mL/min (>60); GLUCOSE 89 mg/dl (70-220); POTASSIUM 4.3 mmol/L (3.5-5.1); SODIUM 138 mmol/L (135-144); TOTAL PROTEIN 7.1 g/dl (6.1-8.1)
[2018-07-08] MEDS: MULTIVITAMINS/MINERALS TAB PO (09:29)
== END 2018-07-08 18:43 | disposition home or self-care (01) | DRG 419 ==
LOC: FTE 10:40 → PP2 15:12
PROC: 0FT44ZZ Resection of Gallbladder, Percutaneous Endoscopic Approach (ICD-10-PCS; principal; 2018-07-02 18:37)
PROC: 0FB04ZX Excision of Liver, Percutaneous Endoscopic Approach, Diagnostic (ICD-10-PCS; 2018-07-02 18:37)
PROC: BF10YZZ Fluoroscopy of Bile Ducts using Other Contrast (ICD-10-PCS; 2018-07-02 18:37)
DX: K80.00 Calculus of gallbladder with acute cholecystitis without obstruction (principal); K76.0 Fatty (change of) liver, not elsewhere classified; D18.09 Hemangioma of other sites; Z68.33 Body mass index [BMI] 33.0-33.9, adult; E66.9 Obesity, unspecified; E80.6 Other disorders of bilirubin metabolism
CPT/HCPCS: 36415; 71045; 74178; 74181; 74300; 76705; 78226; 80048; 80053; 80061; 80076; 80202; 81001; 81003; 81025; 82105; 83690; 83735; 84100; 85025; 85610; 85730; 86038; 86255; 86704; 86708; 86709; 86803; 87040-91; 87340; 88304; 88307; 88313; 96374; 96375; 99285-25

== ENCOUNTER → 2018-07-31 | Outpatient (CLI) | payer MEDICAID ==
[2018-07-31 09:27] LABS: ADD MAN DIFF? NO
[2018-07-31 09:30] LABS: BASOPHIL # 0.1 10^3/ul (0.0-0.1); BASOPHILS % 0.7 % (0.0-2.0); EOSINOPHILS # 0.1 10^3/ul (0.0-0.5); EOSINOPHILS % 1.6 % (0.0-7.0); HEMATOCRIT 40.1 % (37.0-47.0); HEMOGLOBIN 12.9 g/dl (12.0-16.0); LYMPHOCYTES # 2.3 10^3/ul (0.8-2.9); LYMPHOCYTES % 28.8 % (15.0-51.0); MEAN CORPUSCULAR HGB CONC 32.2 g/dl (32.0-37.0); MEAN CORPUSCULAR VOLUME 84.1 fl (82.0-101.0); MEAN PLATELET VOLUME 10.5 fl (7.4-10.4); MONOCYTE # 0.6 10^3/ul (0.3-0.9); MONOCYTES % 7.1 % (0.0-11.0); NEUTROPHIL # 4.9 10^3/ul (1.6-7.5); NEUTROPHILS % 61.6 % (39.0-77.0); PLATELET COUNT 231 10^3/UL (140-415); RED BLOOD COUNT 4.77 10^6/ul (4.20-5.40); RED CELL DISTRIBUTION WIDTH 13.3 % (11.5-14.5)
[2018-07-31 09:54] LABS: ALANINE AMINOTRANSFERASE 31 IU/L (13-69); ALBUMIN 4.4 g/dl (3.3-4.9); ALBUMIN/GLOBULIN RATIO 1.18; ALKALINE PHOSPHATASE 84 IU/L (42-121); AMYLASE 98 U/L (11-123); ANION GAP 11 (5-13); ASPARTATE AMINO TRANSFERASE 28 IU/L (15-46); BILIRUBIN,INDIRECT 0.6 mg/dl (0-1.1); BILIRUBIN,TOTAL 0.6 mg/dl (0.2-1.3); BLOOD UREA NITROGEN 8 mg/dl (7-20); CALCIUM 9.1 mg/dl (8.4-10.2); CARBON DIOXIDE 24 mmol/L (21-31); CHLORIDE 107 mmol/L (97-110); Estimated GFR > 60 mL/min (>60); GLUCOSE 96 mg/dl (70-220); LIPASE 336 U/L (23-300); POTASSIUM 4.3 mmol/L (3.5-5.1); SODIUM 142 mmol/L (135-144); TOTAL PROTEIN 8.1 g/dl (6.1-8.1)
== END | disposition home or self-care (01) ==
LOC: U/S 09:08
DX: R10.9 Unspecified abdominal pain (principal); R11.2 Nausea with vomiting, unspecified; D18.09 Hemangioma of other sites; Z90.49 Acquired absence of other specified parts of digestive tract
CPT/HCPCS: 76700; 80053; 82150; 83690; 85025

== ENCOUNTER → 2018-08-07 | Outpatient (CLI) | payer MEDICAID ==
[2018-08-07 09:02] LABS: ADD MAN DIFF? NO
[2018-08-07 09:05] LABS: BASOPHIL # 0.1 10^3/ul (0.0-0.1); BASOPHILS % 0.9 % (0.0-2.0); EOSINOPHILS # 0.1 10^3/ul (0.0-0.5); HEMATOCRIT 39.1 % (37.0-47.0); HEMOGLOBIN 12.8 g/dl (12.0-16.0); LYMPHOCYTES # 2.3 10^3/ul (0.8-2.9); LYMPHOCYTES % 32.8 % (15.0-51.0); MEAN CORPUSCULAR HEMOGLOBIN 27.6 pg (29.0-33.0); MEAN CORPUSCULAR HGB CONC 32.7 g/dl (32.0-37.0); MEAN CORPUSCULAR VOLUME 84.4 fl (82.0-101.0); MEAN PLATELET VOLUME 10.6 fl (7.4-10.4); MONOCYTE # 0.5 10^3/ul (0.3-0.9); MONOCYTES % 6.4 % (0.0-11.0); NEUTROPHIL # 4.1 10^3/ul (1.6-7.5); NEUTROPHILS % 57.6 % (39.0-77.0); PLATELET COUNT 272 10^3/UL (140-415); RED BLOOD COUNT 4.63 10^6/ul (4.20-5.40); RED CELL DISTRIBUTION WIDTH 13.3 % (11.5-14.5)
[2018-08-07 09:23] LABS: ALANINE AMINOTRANSFERASE 30 IU/L (13-69); ALBUMIN 4.5 g/dl (3.3-4.9); ALKALINE PHOSPHATASE 77 IU/L (42-121); AMYLASE 94 U/L (11-123); ANION GAP 11 (5-13); ASPARTATE AMINO TRANSFERASE 30 IU/L (15-46); BILIRUBIN,INDIRECT 0.6 mg/dl (0-1.1); BILIRUBIN,TOTAL 0.6 mg/dl (0.2-1.3); BLOOD UREA NITROGEN 11 mg/dl (7-20); CALCIUM 9.5 mg/dl (8.4-10.2); CARBON DIOXIDE 27 mmol/L (21-31); CHLORIDE 106 mmol/L (97-110); CREATININE 0.74 mg/dl (0.44-1.00); Estimated GFR > 60 mL/min (>60); GLUCOSE 92 mg/dl (70-220); LIPASE 263 U/L (23-300); POTASSIUM 4.6 mmol/L (3.5-5.1); SODIUM 144 mmol/L (135-144); TOTAL PROTEIN 7.7 g/dl (6.1-8.1)
== END | disposition home or self-care (01) ==
LOC: LAB 08:45
DX: R10.9 Unspecified abdominal pain (principal)
CPT/HCPCS: 80053; 82150; 83690; 85025